=== PATIENT | female | born 1945 | race Hispanic/Latino ===

== ENCOUNTER → 2024-05-08 | Day surgery (SDC) | payer MEDICARE ==
[2024-05-07 15:05] LABS: BASOPHILS % 0.7 % (0.0-1.0); EOSINOPHILS # (AUTO) 0.1 (0.0-0.4); HEMATOCRIT 38.6 % (34.2-44.1); HEMOGLOBIN 12.6 g/dL (12.0-16.0); LYMPHOCYTES # (AUTO) 1.4 (1.0-3.2); MEAN CORPUSCULAR HEMOGLOBIN 31.6 pg (28-32); MEAN CORPUSCULAR HGB CONC 32.6 g/dL (31-35); MEAN CORPUSCULAR VOLUME 96.7 fL (81-99); MONOCYTES # (AUTO) 0.4 (0.2-0.8); MONOCYTES % 7.4 % (4.4-11.3); NEUTROPHILS # (AUTO) 3.9 (2.1-6.9); NEUTROPHILS % 66.6 % (38.7-80.0); PLATELET COUNT 215 x10e3/uL (140-360); RED BLOOD COUNT 3.99 x10e6/uL (3.6-5.1); RED CELL DISTRIBUTION WIDTH 12.4 % (11.7-14.4); WHITE BLOOD COUNT 5.79 x10e3/uL (4.8-10.8)
[~2024-05-08] MED LIST: AMLODIPINE BESYL5 MG PO; CLONIDINE HCL0.2 MG PO; LIDOCAINE HCL 2% LOCAL INJ 5 ML SDV VIAL INJ ONE; PROPOFOL IV EMULSION 0 ML IV ONE; PROPOFOL IV EMULSION 10 MG/ML 20 ML VIAL ONE; PROPOFOL IV EMULSION 50 ML IV ONE
[2024-05-08] MEDS: LACTATED RINGER'S 1,000 ML ONE (13:31)
[2024-05-08 17:20] VITALS: BP 148/82; PULSE 72; RESP 16; O2SAT 99
== END | disposition home or self-care (01) ==
LOC: OR 16:00
PROVIDERS: ATTEND Internal Medicine Gastroenterology
DX: K29.70 Gastritis, unspecified, without bleeding (principal); D12.0 Benign neoplasm of cecum; D12.2 Benign neoplasm of ascending colon; D12.3 Benign neoplasm of transverse colon; K20.90 Esophagitis, unspecified without bleeding; K59.09 Other constipation; K62.89 Other specified diseases of anus and rectum; K57.30 Diverticulosis of large intestine without perforation or abscess without bleeding; K64.8 Other hemorrhoids; Z71.3 Dietary counseling and surveillance; I10 Essential (primary) hypertension; Z71.89 Other specified counseling; Z01.810 Encounter for preprocedural cardiovascular examination; Z01.812 Encounter for preprocedural laboratory examination; Z79.899 Other long term (current) drug therapy; Z68.31 Body mass index [BMI] 31.0-31.9, adult; Z80.0 Family history of malignant neoplasm of digestive organs
CPT/HCPCS: 36415; 43239; 45385; 85025; 93005; J2003; J2470

== ENCOUNTER 2025-01-03 11:33 | Emergency (ER) | payer MEDICARE ==
[~2025-01-03] VITALS: Ht 154.9 cm; Wt 90.7 kg
[~2025-01-03 11:33] MED LIST changes: -LIDOCAINE HCL 2% LOCAL INJ 5 ML SDV VIAL INJ ONE; -PROPOFOL IV EMULSION 0 ML IV ONE; -PROPOFOL IV EMULSION 10 MG/ML 20 ML VIAL ONE; -PROPOFOL IV EMULSION 50 ML IV ONE
[2025-01-03 12:23] VITALS: TEMP 98.1
[2025-01-03 13:25] LABS: BASOPHILS % 0.5 % (0.0-1.0); EOSINOPHILS % 0.2 % (0.0-6.0); LYMPHOCYTES % 19.4 % (18.0-39.1); MONOCYTES % 6.0 % (4.4-11.3); NEUTROPHILS % 73.7 % (38.7-80.0); RED CELL DISTRIBUTION WIDTH 12.3 % (11.7-14.4)
[2025-01-03 13:56] LABS: EST GLOMERULAR FILTRATION RATE 88.0 ML/MIN (>=60)
[2025-01-03 14:24] VITALS: PULSE 69; RESP 17
[2025-01-03] MEDS: HYDRALAZINE HCL 20 MG/ML VIAL IV ONE (14:27)
[2025-01-03 14:29] VITALS: BP 129/70; RESP 18; O2SAT 98
== END 2025-01-03 14:45 | disposition home or self-care (01) ==
LOC: ER 11:46
DX: R42 Dizziness and giddiness (principal); I16.0 Hypertensive urgency; R00.2 Palpitations; H53.8 Other visual disturbances; I10 Essential (primary) hypertension
CPT/HCPCS: 36415; 70450; 71045; 80053; 82550; 83690; 83880; 84484; 85025; 93005; 99284; J0360

== ENCOUNTER 2025-01-30 09:19 | Emergency (ER) | payer MEDICARE ==
[~2025-01-30] VITALS: Ht 154.9 cm; Wt 90.7 kg
[2025-01-30 09:38] VITALS: PULSE 86; RESP 17; TEMP 98.3; O2SAT 99
== END 2025-01-30 11:29 | disposition home or self-care (01) ==
LOC: ER 09:52
DX: I10 Essential (primary) hypertension (principal)
CPT/HCPCS: 99282